=== PATIENT | female | born 1985 | race Caucasian/White ===

== ENCOUNTER 2018-04-29 11:31 | Emergency (ER) | payer BC ==
[2018-04-29] MEDS ORDERED: ROCEPHIN 1 Gm-D5w 50 ml Bag** 1 G/50 ML IVPB IV ONE ×2 (11:50→12:01)
[2018-04-29] MEDS ORDERED: TORAdol 30 mg Injection IV ONE (11:51)
--- NOTE | 2018-04-29 11:57 | ERPHSYRPT ---
- History of Present Illness Time Seen by Provider: 04/29/18 11:35 Source: patient Exam Limitations: no limitations Patient Subjective Stated Complaint: Pt states "This all started with a paper cut about a week and a half ago and now I have this infection in my finger that feels like it is going up my arm." Triage Nursing Assessment: Pt alert and oriented x 3, skin pwd. Pt middle finger on her right hand is slightly swollen, red, has a small scabbed over laceration noted to thee christine. Physician History: patient suffered a paper cut to right middle finger distal volar aspect a few days ago; now with pain, swelling and red streak going up right arm to elbow; pain with flexion; no fever; some clear drainage; had popped the blister with a non-sterile needle at home; no prior hx; left handed; no other complaints Occurred: last week Method of Injury: other (paper cut) Quality: constant, aching Severity of Pain-Max: moderate Severity of Pain-Current: moderate Extremities Pain Location: forearm: right, 3rd finger: right Modifying Factors: Improves With: immobilization (helps), movement (aggravates) Associated Symptoms: none Allergies/Adverse Reactions: No Known Drug Allergies Allergy (Verified 04/29/18 11:43) Hx Tetanus, Diphtheria Vaccination/Date Given: No Hx Influenza Vaccination/Date Given: No Hx Pneumococcal Vaccination/Date Given: No Immunizations Up to Date: Yes - Review of Systems Constitutional: No Symptoms Eyes: No Symptoms Ears, Nose, & Throat: No Symptoms Respiratory: No Cough, No Dyspnea, No Wheezing Cardiac: No Chest Pain, No Palpitations, No Syncope Abdominal/Gastrointestinal: No Abdominal Pain, No Nausea, No Vomiting, No Diarrhea Genitourinary Symptoms: No Symptoms Musculoskeletal: Injury (right middle finger distal), Joint Pain (proximal to elbow) Skin: Cellulitis (proximal to right middle finger) Neurological: No Symptoms Psychological: No Symptoms Endocrine: No Symptoms Hematologic/Lymphatic: No Symptoms Immunological/Allergic: No Symptoms - Past Medical History Pertinent Past Medical History: No Neurological History: No Pertinent History ENT History: No Pertinent History Cardiac History: No Pertinent History Respiratory History: No Pertinent History Endocrine Medical History: No Pertinent History Musculoskeletal History: No Pertinent History GI Medical History: No Pertinent History History: No Pertinent History Psycho-Social History: No Pertinent History Female Reproductive Disorders: No Pertinent History - Past Surgical History Past Surgical History: Yes Musculoskeletal: Orthopedic Surgery Other Surgical History: clavicle repair - Social History Smoking Status: Current every day smoker How long have you smoked: 15 years Exposure to second hand smoke: Yes Alcohol Use: Socially Drug Use: none Patient Lives Alone: No Significant Family History: no pertinent family hx - Female History Hx Last Menstrual Period: 04/18/2018 Hx Now: No - Nursing Vital Signs Nursing Vital Signs: Initial Vital Signs Temperature 98.8 F 04/29/18 11:36 Pulse Rate 116 H 04/29/18 11:36 Respiratory Rate 18 04/29/18 11:36 Blood Pressure 127/92 04/29/18 11:36 O2 Sat by Pulse Oximetry 98 04/29/18 11:36 Pain Scale Pain Intensity 10 - Physical Exam General Appearance: moderate distress, alert, thin Eyes, Ears, Nose, Throat Exam: normal ENT inspection, TMs normal, pharynx normal , moist mucous membranes Neck Exam: normal inspection, non-tender, supple, full range of motion, No meningismus Cardiovascular/Respiratory Exam: chest non-tender, normal breath sounds, regular rate/rhythm, heart sounds normal, no ecchymosis, no JVD, no M/R/G, no respiratory distress Abdominal Exam: non-tender, soft, no organomegaly Back Exam: normal inspection, normal range of motion, No CVA tenderness, No rash Shoulder Exam: normal inspection, non-tender, no evidence of injury, normal ROM Elbow/Forearm Exam: normal inspection, non-tender, no evidence of injury, normal ROM (with discomfort ) Wrist Exam: normal inspection, non-tender, no evidence of injury, normal ROM ( with discomfort) Hand Exam: infection (RM finger), laceration (distal RM finger), soft tissue tenderness (proximal to laceration of distal RM finger), swelling (RM finger mild; no flucuance ; no crepitus), No normal inspection (open sore distal volar aspect right middle finger;no drainage noted; tender and painful swelling proximal; lymphangitis proxiaml to elbow without lymphangitis), No non-tender, No normal ROM (exension ok but flexion of middle finger reduced by 15 %), No bone tenderness, No ecchymosis Neuro/Tendon Exam: normal sensation, normal motor functions, normal tendon functions, responds to pain, no evidence tendon injury Mental Status Exam: alert, oriented x 3, cooperative Skin Exam: normal color, warm, dry, laceration (old 1 cm distal volar aspect RM finger), other (proximal lymphangitis without adenitis right middle finger to elbow), No rash SpO2 Interpretation: normal SpO2: 98 Oxygen Delivery: Room Air - Course Nursing assessment & vital signs reviewed: Yes Ordered Tests: Active Orders 24 hr Category Date Time Status Accucheck STAT Care 04/29/18 11:49 Active IV Insertion STAT Care 04/29/18 11:49 Active Wound Care STAT Care 04/29/18 11:49 Active Wound Care STAT Care 04/29/18 13:40 Ordered BLOOD CULTURE Stat Lab 04/29/18 11:50 Received CBC Stat Lab 04/29/18 11:50 Completed CULTURE,WOUND Stat Lab 04/29/18 11:50 Received Medication Summary Generic Name Dose Route Start Last Admin Trade Name Freq PRN Reason Stop Dose Admin Sodium Chloride 1,000 mls @ 100 mls/hr 04/29/18 12:00 04/29/18 12:14 Sodium Chloride 0.9% 1000 Ml IV 05/29/18 11:59 100 mls/hr .Q10H CÉSAR Administration Discontinued Medications Generic Name Dose Route Start Last Admin Trade Name Freq PRN Reason Stop Dose Admin Hydrocodone Bitart/Acetaminophen 1 tab 04/29/18 13:15 04/29/18 13:25 [place] 5/325 Mg PO 04/29/18 13:16 1 tab STAT ONE Administration Hydrocodone Bitart/Acetaminophen Confirm 04/29/18 13:24 [place] 5/325 Mg Administered 04/29/18 13:25 Dose 1 tab .ROUTE .STK-MED ONE Diphtheria/Tetanus/Acell Pertussis 0.5 ml 04/29/18 12:05 04/29/18 12:28 Adacel Vial IM 04/29/18 12:06 0.5 ml .ONCE ONE Administration Diphtheria/Tetanus/Acell Pertussis Confirm 04/29/18 12:22 Adacel Vial Administered 04/29/18 12:23 Dose 0.5 ml IM .STK-MED ONE Ceftriaxone Sodium/Dextrose 1 g in 50 mls @ 100 mls/hr 04/29/18 11:50 12:15 Rocephin 1 Gm-D5w 50 Ml Bag IV 04/29/18 12:19 100 mls/hr STAT ONE 100 mls/hr Administration Ceftriaxone Sodium/Dextrose Confirm 04/29/18 12:01 Rocephin 1 Gm-D5w 50 Ml Bag Administered 04/29/18 12:02 Dose 1 g in 50 mls @ ud IV .STK-MED ONE Ketorolac Tromethamine 15 mg 04/29/18 11:51 04/29/18 12:13 Toradol 30 Mg Injection IV 04/29/18 11:52 15 mg STAT ONE Administration Ketorolac Tromethamine Confirm 04/29/18 12:01 Toradol 30 Mg Injection Administered 04/29/18 12:02 Dose 30 mg .ROUTE .STK-MED ONE Lab/Rad Data: Laboratory Result Diagrams 04/29/18 11:50 Laboratory Results 04/29/18 Range/Units 11:50 WBC 9.2 (4.0-10.5) K/mm3 RBC 4.10 (4.1-5.4) M/mm3 Hgb 14.9 (12.0-16.0) gm/dl Hct 41.5 (35-47) % MCV 101.2 H (78-100) fl MCH 36.3 H (26-32) pg MCHC 35.9 (32-36) g/dl RDW 11.8 (11.5-14.0) % Plt Count 196 (150-450) K/mm3 MPV 11.0 H (6-9.5) fl reviewed - Progress Progress: improved, re-examined (after meds and labs) Progress Note: 04/29/18 12:04 will get a C&S; clean and soak; give IV ABS and pain meds; check CBC; update tetanus and recheck 04/29/18 12:17 here and at bedside; reviewed findings and treatment plan; will recheck 04/29/18 12:46 some relief with pain meds; cBC wnl; finger soaking; at bedside 04/29/18 13:42 bacitracin and tube gauze applied; instructions given; at bedside; pain improved Counseled pt/family regarding: lab results, diagnosis, need for follow-up - Departure Time of Disposition: 13:42 Departure Disposition: Home Clinical Impression: infected laceration distal RM finger , cellulitis RM finger Condition: Stable Critical Care Time: No Referrals: LATOYA HA [Primary Care Provider] - Instructions: Cellulitis (Skin Infection), Adult (DC) Additional Instructions: elevate; clean; ;bacitracin prn; soak QID betadyne; Call LMD for recheck appt 48 hrs - sooner if problems Follow-up with family doctor as directed. Call for appointment. Return if any problems. If you smoke please stop. Call or follow up with your family doctor for assistance if you need it to stop. Please wear your seatbelt when driving. Have a nice day. Thank you for allowing us to participate in your care today. :o) Dr Dylon Joel Prescriptions: Naproxen Sodium [Anaprox Ds] 550 mg PO Q8HPRN PRN #14 tablet PRN Reason: Pain Sulfamethoxazole/Trimethoprim [Bactrim 400-80 mg Tablet] 1 each PO BID #20 tablet
[2018-04-29] MEDS ORDERED: Sodium Chloride 0.9% 1000 ML 1,000 ML IV SCH (12:00)
[2018-04-29] MEDS ORDERED: TORAdol 30 mg Injection ONE (12:01)
[2018-04-29] MEDS ORDERED: Sodium Chloride 0.9% 1000 ML 1,000 ML ONE (12:01)
[2018-04-29] MEDS ORDERED: Adacel Vial IM ONE ×2 (12:05→12:22)
[2018-04-29 12:26] LABS: Hematocrit 41.5 % (35-47); Hemoglobin 14.9 gm/dl (12.0-16.0); Mean Cell Volume 101.2 fl (78-100); Mean Corpuscular Hemoglobin 36.3 pg (26-32); Mean Corpuscular Hgb Concent. 35.9 g/dl (32-36); Platelet Count 196 K/mm3 (150-450); Red Cell Distribution Width 11.8 % (11.5-14.0); White Blood Count 9.2 K/mm3 (4.0-10.5)
[2018-04-29] MEDS ORDERED: NORCO 5/325 MG PO ONE (13:15)
[2018-04-29] MEDS ORDERED: NORCO 5/325 MG ONE (13:24)
[2018-04-29 14:08] VITALS: BP 117/82; PULSE 104; O2SAT 100
== END 2018-04-29 15:00 | disposition home or self-care (01) ==
LOC: ED 11:31
DX: L03.011 Cellulitis of right finger (principal)
CPT/HCPCS: 36000; 36415; 82962; 85027; 87040; 87070; 87077; 87186; 90471; 90715; 96360; 96361; 96365; 96374; 96375; 99284; J0696; J1885; A9270-GY

== ENCOUNTER 2018-12-14 11:01 | Day surgery (SDC) | payer BC ==
[2018-12-14] MEDS ORDERED: Lactated Ringers 1,000 ML IV SCH (11:30)
[2018-12-14] MEDS ORDERED: Lactated Ringers 1,000 ML IV ONE (11:52)
[2018-12-14] MEDS ORDERED: DIPRIVAN 200 MG/20 ML IV ONE ×3 (13:29→14:25)
[2018-12-14] MEDS ORDERED: Ketamine HCl 50 MG/ML ONE (13:29)
[2018-12-14 15:21] VITALS: O2SAT 100
--- NOTE | 2018-12-14 15:23 | OP ---
PROCEDURE DATE/TIME: 12/14/2018 1400 PREOPERATIVE DIAGNOSES: 1) Abdominal pain. 2) Nausea. 3) Vomiting. 4) Reflux. 5) Occasional blood in stool. 6) Change in bowel function. POSTOPERATIVE DIAGNOSES: 1) Small hiatal hernia. 2) Gastroesophageal reflux disease with reflux esophagitis. 3) Peptic ulcer disease. 4) Gastritis. 5) Mild duodenitis. 6) Rectosigmoid polyps. 7) Internal and external hemorrhoidal disease. PROCEDURES: 1) EGD with multiple biopsies. 2) Colonoscopy with hot forceps polypectomy. PLAN: Proton pump inhibitor therapy with Carafate and continue H2 edin. Lifestyle changes and tentative plan for EGD in three months and colonoscopy in approximately five years pending final pathology report. PROCEDURE PERFORMED BY: Camryn Ruiz M.D. ANESTHESIA: MAC. ESTIMATED BLOOD LOSS: Minimal. COMPLICATIONS: None. SPECIMENS: 1) Distal esophagus; rule out Mascorro's disease. 2) Gastric antrum, rule out Helicobacter pylori. 3) Rectosigmoid polyp. 4) Stool for culture, ova and parasite, Clostridium difficile. HISTORY: This is a patient who presents with multiple symptoms including abdominal pain, nausea, vomiting, change in bowel function, occasional blood in stool as well as reflux. She was having a hard time eating due to all of his symptoms. Risks, benefits, alternatives to the procedure, H&P, consent, test all reviewed with her, confirmed test negative. She does have elevated liver function tests and mildly elevated alkaline phosphatase as well which I discussed with her and we will follow this up with an ultrasound. DESCRIPTION OF PROCEDURE: The patient was then brought back to the endoscopy suite. Laid in the left lateral decubitus position. A complete time out performed. The scope gently introduced into the mouth, oropharynx and down into the esophagus, stomach, duodenum. The duodenum had some mild duodenitis in D1 otherwise looked okay. In the stomach there were multiple small antral ulcers. She also had gastritis. On retroflex view her hiatus looked okay. However when she carefully withdrew the scope she did have a very small subtle hiatal hernia only about 1 cm. In the antrum I did take biopsies to rule out Helicobacter pylori disease and these sites are hemostatic and sent to pathology. I did not find anything else in the stomach other than antral ulcers and the inflammation. As I withdrew the scope we again saw the 1 cm hiatal hernia. She also had Mascorro-like reflux changes with reflux esophagitis. I took biopsies at the lateral most column of 1.5 cm, just took a couple bites through here and other biopsies at the other lateral aspect which had a 0.5 cm column of reflux changes and sent these all to pathology. The remainder of the esophagus looked normal. These site are hemostatic after biopsy. We then repositioned the patient for colonoscopy. First, a rectal exam was done. She does have a slightly enlarged, moderately inflamed right internal hemorrhoid as well as enlarged moderate sized external posterior hemorrhoid. The scope is then inserted and gently advanced to the cecum. The cecum looked completely normal. The ileocecal valve looked normal, not able to intubate these but the valve itself on the outside looked normal. As we carefully withdrew the scope, we took a circumferential view. There was liquid stool. We irrigated this. Overall prep was satisfactory and quite good. She had one polyp in the rectosigmoid region at about 15 cm taken in entirety with hot forceps and sent to pathology. Site is hemostatic. Scope able to be completely withdrawn. No other findings. Stool was sent for stool culture, Clostridium difficile, ova and parasites due to her diarrhea as well. The patient tolerated the procedure very well. No immediate complications. She is going to need a right upper quadrant ultrasound. She is also going to follow up with me as an outpatient for further evaluation and biopsy results. I increased her proton pump inhibitor to twice a day, decreased her H2 edin to once a day and added Carafate to her regimen. I would like for her avoid NSAID's and we have discussed lifestyle changes as well to improve her symptoms.
[2018-12-14 15:47] VITALS: BP 104/66; PULSE 80
[2018-12-14 16:20] LABS: 027 TOX PROD PRESUMPTIVE NEGATIVE (NEGATIVE); TOXIGENIC C. DIFF ORG NEGATIVE (NEGATIVE)
[2018-12-15 13:27] LABS: Source: Feces
[2018-12-15 14:27] LABS: Giardia Antigen EIA Negative (Negative)
== END 2018-12-14 16:06 | disposition home or self-care (01) ==
LOC: SDC 11:01
PROVIDERS: ATTEND Surgery
DX: K21.0 Gastro-esophageal reflux disease with esophagitis (principal); K44.9 Diaphragmatic hernia without obstruction or gangrene; K27.9 Peptic ulcer, site unspecified, unspecified as acute or chronic, without hemorrhage or perforation; K29.50 Unspecified chronic gastritis without bleeding; K29.80 Duodenitis without bleeding; K63.5 Polyp of colon; K62.1 Rectal polyp; K64.4 Residual hemorrhoidal skin tags; K64.8 Other hemorrhoids; R11.2 Nausea with vomiting, unspecified; R19.4 Change in bowel habit; K92.1 Melena; R94.5 Abnormal results of liver function studies
CPT/HCPCS: 36415; 80307; 87045; 87046; 87177; 87209; 87335; 87493; J2704; G0480